=== PATIENT | female | born 1980 | race Caucasian/White ===

== ENCOUNTER 2017-09-15 20:38 | Day surgery (SDC) | payer BC ==
--- NOTE | 2017-09-15 21:10 | EDM.PDOC ---
ED HPI GENERAL MEDICAL PROBLEM - General Chief Complaint: Abdominal Pain Stated Complaint: STOMACH PAIN Time Seen by Provider: 09/15/17 20:38 Source of Information: Reports: Patient History Limitations: Reports: No Limitations - History of Present Illness INITIAL COMMENTS - FREE TEXT/NARRATIVE: 37 y.o.w.f came to the ed after she was seen at the clinic. Pt came to the ed due to lower abd pain more so at the RLQ of her abd. No F/C/N/V Temp was 36.2 BP 102/72 Pulse 72 O2 sat 95% on RA, no trauma, denied Onset Date: 09/15/17 Onset Time: 03:00 Duration: Hour(s):, Intermittent Location: Reports: Abdomen (lower abd. worse Right lower abd. ) Quality: Reports: Ache Severity: Moderate Improves with: Reports: Rest Worsens with: Reports: Movement Associated Symptoms: Reports: No Other Symptoms Right Lower Abdomen Pain Score (Numeric/FACES): 6 - Related Data Allergies Allergy/AdvReac Type Severity Reaction Status Date / Time Penicillins Allergy Rash Verified 09/15/17 20:52 Home Meds: Home Meds Escitalopram Oxalate 5 mg PO ASDIRECTED PRN 09/15/17 [History] ED ROS GENERAL - Review of Systems Review Of Systems: See Below Constitutional: Reports: No Symptoms HEENT: Reports: No Symptoms Respiratory: Reports: No Symptoms Cardiovascular: Reports: No Symptoms Endocrine: Reports: No Symptoms GI/Abdominal: Reports: Abdominal Pain (lower abd. R side > the left lide of lower abdomen) : Reports: No Symptoms ED EXAM, GI/ABD - Physical Exam Exam: See Below Exam Limited By: No Limitations General Appearance: Alert, WD/WN, Mild Distress Eyes: Bilateral: Normal Appearance Ears: Normal External Exam Nose: Normal Inspection Throat/Mouth: Normal Inspection Head: Atraumatic, Normocephalic Neck: Normal Inspection, Supple, Non-Tender, Full Range of Motion Respiratory/Chest: No Respiratory Distress, Lungs Clear, Normal Breath Sounds, No Accessory Muscle Use Cardiovascular: Normal Peripheral Pulses, Regular Rate, Rhythm, No Edema GI/Abdominal Exam: Tender (RLQ of abdomen) (Female) Exam: Deferred Rectal (Female) Exam: Deferred Back Exam: Normal Inspection, Full Range of Motion Extremities: Normal Inspection, Normal Range of Motion, Non-Tender, No Pedal Edema, Normal Capillary Refill Neurological: Alert, Oriented, CN II-XII Intact, Normal Cognition, Normal Gait, No Motor/Sensory Deficits Psychiatric: Normal Affect, Normal Mood Skin Exam: Warm, Dry, Intact, Normal Color, No Rash Lymphatic: No Adenopathy Course - Vital Signs Text/Narrative:: 37 y.o.w.f came to the ed after she was seen at the clinic. Pt came to the ed due to lower abd pain more so at the RLQ of her abd. No F/C/N/V Temp was 36.2 BP 102/72 Pulse 72 O2 sat 95% on RA, no trauma, denied PE: R lower abd. pain with guarding/no rebound Labs: WBC 11.9 HGB 14.3 UA neg for UTI HCG neg Imaging: Acute appendicitis, cyst at left wall of vagina Impression: Acute Appy, Cyst left wall of vagina Tx: Toradol, Mefoxin Reexam: Pain subsided 11.35 pm Consultation: , surgeon: Will see the pt in the Ed, call surgical team in Plan: Surgery scheduled. Dr. Grimes took the care over at 11.45 pm Last Recorded V/S: Last Vital Signs Temp 36.9 C 09/16/17 08:00 Pulse 80 09/16/17 13:15 Resp 18 09/16/17 08:00 BP 102/61 09/16/17 08:00 Pulse Ox 96 09/16/17 13:15 - Orders/Labs/Meds Orders: Active Orders 24 hr Category Date Time Status Patient Status [ADT] Routine ADT 09/16/17 01:17 Active Oxygen Therapy [RC] PRN Care 09/16/17 01:17 Active RT Incentive Spirometry [RC] Q2HWA Care 09/16/17 01:19 Active Ready for Discharge [RC] PER UNIT ROUTINE Care 09/16/17 13:32 Active Up With Assistance [RC] ASDIRECTED Care 09/16/17 01:19 Active Vital Signs [RC] PER UNIT ROUTINE Care 09/16/17 01:19 Active Clear Liquid Diet [DIET] Diet 09/16/17 Breakfast Ordered Full Liquid Diet [DIET] Diet 09/16/17 Dinner Ordered Abdomen Pelvis w Cont [CT] Stat Exams 09/15/17 22:31 Taken Acetaminophen/HYDROcodone [[place] 325-5 MG] Med 09/16/17 01:19 Active 1 tab PO Q4H PRN Lactated Ringers [Ringers, Lactated] 1,000 ml Med 09/16/17 01:30 Active IV ASDIRECTED Lactated Ringers [Ringers, Lactated] 1,000 ml Med 09/16/17 23:55 Active IV ASDIRECTED Morphine Med 09/16/17 01:19 Active 2 mg IVPUSH Q1H PRN Sodium Chloride 0.9% [Saline Flush] Med 09/15/17 22:50 Active 10 ml FLUSH ASDIRECTED PRN Peripheral IV Discontinue [OM.PC] Routine Oth 09/16/17 13:07 Ordered Saline Lock Insert [OM.PC] Routine Oth 09/15/17 22:50 Ordered Resuscitation Status Routine Resus Stat 09/16/17 01:17 Ordered Medication Orders Hydrocodone Bitart/Acetaminophen ([place] 325-5 Mg) 1 tab PO Q4H PRN PRN Reason: Pain (mild 1-3) Last Admin: 09/16/17 10:22 Dose: 1 tab Lactated Ringer's (Ringers, Lactated) 1,000 mls @ 125 mls/hr IV ASDIRECTED BRYON Lactated Ringer's (Ringers, Lactated) 1,000 mls @ 125 mls/hr IV ASDIRECTED BRYON Last Admin: 09/16/17 06:24 Dose: 125 mls/hr Infusion: 09/16/17 06:24 Dose: 125 mls/hr Admin: 09/15/17 23:55 Dose: 125 mls/hr Morphine Sulfate (Morphine) 2 mg IVPUSH Q1H PRN PRN Reason: Pain (severe 7-10) Last Admin: 09/16/17 08:42 Dose: 2 mg Admin: 09/16/17 05:29 Dose: 2 mg Admin: 09/16/17 02:28 Dose: 2 mg Sodium Chloride (Saline Flush) 10 ml FLUSH ASDIRECTED PRN PRN Reason: Keep Vein Open Last Admin: 09/15/17 22:50 Dose: 10 ml Labs: Laboratory Tests 09/15/17 09/15/17 09/15/17 Range/Units 21:16 21:16 21:50 WBC 11.9 (4.5-12.0) X10-3/uL RBC 4.98 (3.23-5.20) x10(6)uL Hgb 14.3 (11.5-15.5) g/dL Hct 43.6 (30.0-51.3) % MCV 87.5 (80-96) fL MCH 28.8 (27.7-33.6) pg MCHC 32.9 (32.2-35.4) g/dL RDW 12.3 (11.5-15.5) % Plt Count 213 (125-369) X10(3)uL MPV 9.6 (7.4-10.4) fL Neut % (Auto) 80.8 (46-82) % Lymph % (Auto) 13.6 (13-37) % [place] % (Auto) 4.9 (4-12) % Eos % (Auto) 0 L (1.0-5.0) % Baso % (Auto) 1 (0-2) % Neut # (Auto) 9.6 H (1.6-8.3) # Lymph # (Auto) 1.6 (0.6-5.0) # [place] # (Auto) 0.6 (0.0-1.3) # Eos # (Auto) 0.0 (0.0-0.8) # Baso # (Auto) 0.1 (0.0-0.2) # Sodium (135-145) mmol/L Potassium (3.5-5.3) mmol/L Chloride (100-110) mmol/L Carbon Dioxide (23-29) mmol/L BUN (5-20) mg/dL Creatinine (0.6-1.3) mg/dL Est Cr Clr Drug Dosing mL/min Estimated GFR (MDRD) (>60) BUN/Creatinine Ratio (9-20) Glucose (80-116) mg/dL Lactic Acid (0.5-2.2) mmol/L Calcium (8.6-10.2) mg/dL Total Bilirubin (0.1-1.3) mg/dL Direct Bilirubin (0.1-0.2) mg/dL AST (5-27) IU/L ALT (14-26) IU/L Alkaline Phosphatase (56-112) IU/L Total Protein (6.0-8.0) g/dL Albumin (3.5-5.2) g/dL Amylase (28-100) U/L Urine Color Yellow (YELLOW) Urine Appearance Clear (CLEAR) Urine pH 6.0 (5.0-6.5) Ur Specific [place] 1.020 (1.010-1.025) Urine Protein Negative (NEGATIVE) mg/dL Urine Glucose (UA) Normal (NEGATIVE) mg/dL Urine Ketones 150 H (NEGATIVE) mg/dL Urine Occult Blood Negative (NEGATIVE) Urine Nitrite Negative (NEGATIVE) Urine Bilirubin Negative (NEGATIVE) Urine Urobilinogen 1 H (NEGATIVE) mg/dL Ur Leukocyte Esterase Negative (NEGATIVE) Urine RBC 0-5 (0) Urine WBC 0-5 (0) Ur Squamous Epith Cells Moderate H (NS,R,O) Urine Bacteria Few H (NS) Urine Mucus Moderate H (NS) Urine HCG, Qual Negative (NEGATIVE) 09/15/17 09/15/17 Range/Units 21:50 21:50 WBC (4.5-12.0) X10-3/uL RBC (3.23-5.20) x10(6)uL Hgb (11.5-15.5) g/dL Hct (30.0-51.3) % MCV (80-96) fL MCH (27.7-33.6) pg MCHC (32.2-35.4) g/dL RDW (11.5-15.5) % Plt Count (125-369) X10(3)uL MPV (7.4-10.4) fL Neut % (Auto) (46-82) % Lymph % (Auto) (13-37) % [place] % (Auto) (4-12) % Eos % (Auto) (1.0-5.0) % Baso % (Auto) (0-2) % Neut # (Auto) (1.6-8.3) # Lymph # (Auto) (0.6-5.0) # [place] # (Auto) (0.0-1.3) # Eos # (Auto) (0.0-0.8) # Baso # (Auto) (0.0-0.2) # Sodium 135 (135-145) mmol/L Potassium 3.7 (3.5-5.3) mmol/L Chloride 101 (100-110) mmol/L Carbon Dioxide 27 (23-29) mmol/L BUN 7 (5-20) mg/dL Creatinine 0.7 (0.6-1.3) mg/dL Est Cr Clr Drug Dosing 112.45 mL/min Estimated GFR (MDRD) > 60 (>60) BUN/Creatinine Ratio 10.0 (9-20) Glucose 129 H (80-116) mg/dL Lactic Acid 0.9 (0.5-2.2) mmol/L Calcium 8.9 (8.6-10.2) mg/dL Total Bilirubin 1.9 H (0.1-1.3) mg/dL Direct Bilirubin 0.2 (0.1-0.2) mg/dL AST 19 (5-27) IU/L ALT 13 L (14-26) IU/L Alkaline Phosphatase 35 L (56-112) IU/L Total Protein 7.2 (6.0-8.0) g/dL Albumin 4.5 (3.5-5.2) g/dL Amylase 64 (28-100) U/L Urine Color (YELLOW) Urine Appearance (CLEAR) Urine pH (5.0-6.5) Ur Specific [place] (1.010-1.025) Urine Protein (NEGATIVE) mg/dL Urine Glucose (UA) (NEGATIVE) mg/dL Urine Ketones (NEGATIVE) mg/dL Urine Occult Blood (NEGATIVE) Urine Nitrite (NEGATIVE) Urine Bilirubin (NEGATIVE) Urine Urobilinogen (NEGATIVE) mg/dL Ur Leukocyte Esterase (NEGATIVE) Urine RBC (0) Urine WBC (0) Ur Squamous Epith Cells (NS,R,O) Urine Bacteria (NS) Urine Mucus (NS) Urine HCG, Qual (NEGATIVE) Meds: Medications Generic Name Dose Route Start Last Admin Trade Name Freq PRN Reason Stop Dose Admin Hydrocodone Bitart/Acetaminophen 1 tab 09/16/17 01:19 09/16/17 10:22 [place] 325-5 Mg PO 1 tab Q4H PRN Administration Pain (mild 1-3) Lactated Ringer's 1,000 mls @ 125 mls/hr 09/16/17 23:55 Ringers, Lactated IV ASDIRECTED BRYON Lactated Ringer's 1,000 mls @ 125 mls/hr 09/16/17 01:30 09/16/17 06:24 Ringers, Lactated IV 125 mls/hr ASDIRECTED BRYON Administration Morphine Sulfate 2 mg 09/16/17 01:19 09/16/17 08:42 Morphine IVPUSH 2 mg Q1H PRN Administration Pain (severe 7-10) Sodium Chloride 10 ml 09/15/17 22:50 09/15/17 22:50 Saline Flush FLUSH 10 ml ASDIRECTED PRN Administration Keep Vein Open Discontinued Medications Generic Name Dose Route Start Last Admin Trade Name Murphyq PRN Reason Stop Dose Admin Cefoxitin Sodium Confirm 09/15/17 23:58 09/16/17 02:45 Mefoxin Administered 09/15/17 23:59 Not Given Dose 2 gm .ROUTE .STK-MED ONE Cefoxitin Sodium 2 gm/ Sodium 100 mls @ 200 mls/hr 09/15/17 23:54 09/16/17 02 :45 Chloride IV 09/16/17 00:23 Not Given ONETIME ONE Cefoxitin Sodium Confirm 09/16/17 00:01 09/16/17 02:45 Mefoxin In Dextrose,Iso-Osm 1 Gm/50 Ml Administered 09/16/17 00:02 Not Given Dose 100 mls @ as directed .ROUTE .STK-MED ONE Cefoxitin Sodium 1 gm/ Premix 50 mls @ 100 mls/hr 09/16/17 23:55 IV 09/17/17 00:24 ONETIME ONE Cefoxitin Sodium 1 gm/ Premix 50 mls @ 100 mls/hr 09/16/17 00:20 09/16/17 00: 21 IV 09/16/17 00:24 100 mls/hr ONETIME ONE Administration Iopamidol 100 ml 09/15/17 22:47 Isovue-370 (76%) IV 09/15/17 22:48 ONETIME ONE Ketorolac Tromethamine 60 mg 09/15/17 21:53 09/15/17 22:00 Toradol IM 09/15/17 21:54 60 mg ONETIME ONE Administration Departure - Departure Time of Disposition: 00:00 Disposition: Still A Patient 30 Condition: Fair Clinical Impression: Appendicitis - Discharge Information - My Orders Last 24 Hours: My Active Orders 09/15/17 22:31 Abdomen Pelvis w Cont [CT] Stat 09/15/17 22:50 Sodium Chloride 0.9% [Saline Flush] 10 ml FLUSH ASDIRECTED PRN Saline Lock Insert [OM.PC] Routine - Assessment/Plan Last 24 Hours: My Active Orders 09/15/17 22:31 Abdomen Pelvis w Cont [CT] Stat 09/15/17 22:50 Sodium Chloride 0.9% [Saline Flush] 10 ml FLUSH ASDIRECTED PRN Saline Lock Insert [OM.PC] Routine
[2017-09-15] MEDS ORDERED: Ketorolac 60 MG/2 ML SDV IM ONE (21:53)
[2017-09-15] MEDS ORDERED: Iopamidol 755 Mg/ML 100 ML Bottle IV ONE (22:47)
[2017-09-15] MEDS ORDERED: Sodium Chloride 0.9% 10 ML Syringe FLUSH PRN (22:50)
[2017-09-15] MEDS ORDERED: cefOXitin 2 GM in Sodium Chloride 0.9% 100 ML IV ONE (23:54)
[2017-09-15] MEDS: Lactated Ringers 1,000 ML IV SCH (23:55)
[2017-09-15] MEDS ORDERED: cefOXitin 1 GM Vial ONE (23:58)
[2017-09-16] MEDS ORDERED: cefOXitin 100 ML ONE (00:01)
--- NOTE | 2017-09-16 00:13 | PCM.HP ---
H&P History of Present Illness - General Date of Service: 09/16/17 Source of Information: Patient History Limitations: Reports: No Limitations - History of Present Illness Onset of Symptoms: Reports: Gradual (sice 0300) Location: Reports: Abdomen (diffuse, now RLQ) Quality: Reports: Ache, Sharp Severity: Moderate Improves with: Reports: Medication Worsens with: Reports: Movement Associated Symptoms: Denies: Nausea/Vomiting Right Lower Abdomen Pain Score (Numeric/FACES): 6 - Related Data Allergies/Adverse Reactions: Allergies Allergy/AdvReac Type Severity Reaction Status Date / Time Penicillins Allergy Rash Verified 09/15/17 20:52 Home Medications: Home Meds Escitalopram Oxalate 5 mg PO ASDIRECTED PRN 09/15/17 [History] Past Medical History Psychiatric History: Reports: Anxiety, Depression - Infectious Disease History Infectious Disease History: Reports: Chicken Pox Social & Family History - Tobacco Use Smoking Status *Q: Never Smoker Second Hand Smoke Exposure: No - Caffeine Use Caffeine Use: Reports: Coffee, Soda - Recreational Drug Use Recreational Drug Use: No H&P Review of Systems - Review of Systems: Review Of Systems: See Below General: Reports: No Symptoms. Denies: Fever, Chills HEENT: Reports: No Symptoms Pulmonary: Reports: No Symptoms Cardiovascular: Reports: No Symptoms Gastrointestinal: Reports: Abdominal Pain Genitourinary: Reports: No Symptoms Exam - Exam Exam: See Below - Vital Signs Vital Signs: Last Vital Signs Temp 98.3 F 09/15/17 20:53 Pulse 72 09/15/17 20:53 Resp 16 09/15/17 20:53 BP 102/72 09/15/17 20:53 Pulse Ox 95 09/15/17 20:53 Weight: 63.503 kg - Exam General: Alert, Oriented Lungs: Clear to Auscultation, Normal Respiratory Effort Cardiovascular: Regular Rate, Regular Rhythm GI/Abdominal Exam: Soft, Tender (in RLQ) - Patient Data Lab Results Last 24 hrs: Laboratory Results - last 24 hr 09/15/17 09/15/17 09/15/17 Range/Units 21:16 21:16 21:50 WBC 11.9 (4.5-12.0) X10-3/uL RBC 4.98 (3.23-5.20) x10(6)uL Hgb 14.3 (11.5-15.5) g/dL Hct 43.6 (30.0-51.3) % MCV 87.5 (80-96) fL MCH 28.8 (27.7-33.6) pg MCHC 32.9 (32.2-35.4) g/dL RDW 12.3 (11.5-15.5) % Plt Count 213 (125-369) X10(3)uL MPV 9.6 (7.4-10.4) fL Neut % (Auto) 80.8 (46-82) % Lymph % (Auto) 13.6 (13-37) % [place] % (Auto) 4.9 (4-12) % Eos % (Auto) 0 L (1.0-5.0) % Baso % (Auto) 1 (0-2) % Neut # (Auto) 9.6 H (1.6-8.3) # Lymph # (Auto) 1.6 (0.6-5.0) # [place] # (Auto) 0.6 (0.0-1.3) # Eos # (Auto) 0.0 (0.0-0.8) # Baso # (Auto) 0.1 (0.0-0.2) # Sodium (135-145) mmol/L Potassium (3.5-5.3) mmol/L Chloride (100-110) mmol/L Carbon Dioxide (23-29) mmol/L BUN (5-20) mg/dL Creatinine (0.6-1.3) mg/dL Est Cr Clr Drug Dosing mL/min Estimated GFR (MDRD) (>60) BUN/Creatinine Ratio (9-20) Glucose (80-116) mg/dL Lactic Acid (0.5-2.2) mmol/L Calcium (8.6-10.2) mg/dL Total Bilirubin (0.1-1.3) mg/dL Direct Bilirubin (0.1-0.2) mg/dL AST (5-27) IU/L ALT (14-26) IU/L Alkaline Phosphatase (56-112) IU/L Total Protein (6.0-8.0) g/dL Albumin (3.5-5.2) g/dL Amylase (28-100) U/L Urine Color Yellow (YELLOW) Urine Appearance Clear (CLEAR) Urine pH 6.0 (5.0-6.5) Ur Specific [place] 1.020 (1.010-1.025) Urine Protein Negative (NEGATIVE) mg/dL Urine Glucose (UA) Normal (NEGATIVE) mg/dL Urine Ketones 150 H (NEGATIVE) mg/dL Urine Occult Blood Negative (NEGATIVE) Urine Nitrite Negative (NEGATIVE) Urine Bilirubin Negative (NEGATIVE) Urine Urobilinogen 1 H (NEGATIVE) mg/dL Ur Leukocyte Esterase Negative (NEGATIVE) Urine RBC 0-5 (0) Urine WBC 0-5 (0) Ur Squamous Epith Cells Moderate H (NS,R,O) Urine Bacteria Few H (NS) Urine Mucus Moderate H (NS) Urine HCG, Qual Negative (NEGATIVE) 09/15/17 09/15/17 Range/Units 21:50 21:50 WBC (4.5-12.0) X10-3/uL RBC (3.23-5.20) x10(6)uL Hgb (11.5-15.5) g/dL Hct (30.0-51.3) % MCV (80-96) fL MCH (27.7-33.6) pg MCHC (32.2-35.4) g/dL RDW (11.5-15.5) % Plt Count (125-369) X10(3)uL MPV (7.4-10.4) fL Neut % (Auto) (46-82) % Lymph % (Auto) (13-37) % [place] % (Auto) (4-12) % Eos % (Auto) (1.0-5.0) % Baso % (Auto) (0-2) % Neut # (Auto) (1.6-8.3) # Lymph # (Auto) (0.6-5.0) # [place] # (Auto) (0.0-1.3) # Eos # (Auto) (0.0-0.8) # Baso # (Auto) (0.0-0.2) # Sodium 135 (135-145) mmol/L Potassium 3.7 (3.5-5.3) mmol/L Chloride 101 (100-110) mmol/L Carbon Dioxide 27 (23-29) mmol/L BUN 7 (5-20) mg/dL Creatinine 0.7 (0.6-1.3) mg/dL Est Cr Clr Drug Dosing 112.45 mL/min Estimated GFR (MDRD) > 60 (>60) BUN/Creatinine Ratio 10.0 (9-20) Glucose 129 H (80-116) mg/dL Lactic Acid 0.9 (0.5-2.2) mmol/L Calcium 8.9 (8.6-10.2) mg/dL Total Bilirubin 1.9 H (0.1-1.3) mg/dL Direct Bilirubin 0.2 (0.1-0.2) mg/dL AST 19 (5-27) IU/L ALT 13 L (14-26) IU/L Alkaline Phosphatase 35 L (56-112) IU/L Total Protein 7.2 (6.0-8.0) g/dL Albumin 4.5 (3.5-5.2) g/dL Amylase 64 (28-100) U/L Urine Color (YELLOW) Urine Appearance (CLEAR) Urine pH (5.0-6.5) Ur Specific [place] (1.010-1.025) Urine Protein (NEGATIVE) mg/dL Urine Glucose (UA) (NEGATIVE) mg/dL Urine Ketones (NEGATIVE) mg/dL Urine Occult Blood (NEGATIVE) Urine Nitrite (NEGATIVE) Urine Bilirubin (NEGATIVE) Urine Urobilinogen (NEGATIVE) mg/dL Ur Leukocyte Esterase (NEGATIVE) Urine RBC (0) Urine WBC (0) Ur Squamous Epith Cells (NS,R,O) Urine Bacteria (NS) Urine Mucus (NS) Urine HCG, Qual (NEGATIVE) Result Diagrams: 09/15/17 21:50 09/15/17 21:50 Imaging Impressions Last 24 hrs: CT show acute appendicitis *Q Meaningful Use (ADM) - VTE *Q VTE Criteria *Q: - Stroke *Q Stroke Criteria *Q: - AMI *Q AMI Criteria *Q: - Problem List (1) Appendicitis, acute SNOMED Code(s): 03036467 ICD Code: K35.80 - UNSPECIFIED ACUTE APPENDICITIS Status: Acute Current Visit: Yes Problem List Initiated/Reviewed/Updated: Yes Orders Last 24hrs: Active Orders 24 hr Category Date Time Status Abdomen Pelvis w Cont [CT] Stat Exams 09/15/17 22:31 Taken Sodium Chloride 0.9% [Saline Flush] Med 09/15/17 22:50 Active 10 ml FLUSH ASDIRECTED PRN cefOXitin [Mefoxin] 2 gm Med 09/15/17 23:54 Active Sodium Chloride 0.9% [Normal Saline] 100 ml IV ONETIME Saline Lock Insert [OM.PC] Routine Oth 09/15/17 22:50 Ordered Medication Orders Cefoxitin Sodium 2 gm/ Sodium (Chloride) 100 mls @ 200 mls/hr IV ONETIME ONE Stop: 09/16/17 00:23 Sodium Chloride (Saline Flush) 10 ml FLUSH ASDIRECTED PRN PRN Reason: Keep Vein Open Last Admin: 09/15/17 22:50 Dose: 10 ml Assessment/Plan Comment:: Acute Appendicitis Will proceed with lap appy; risks and complications reviewed, consent obtained
[2017-09-16] MEDS ORDERED: cefOXitin 1 GM in Premix Bag 1 BAG IV ONE ×5 (00:20→23:55)
[2017-09-16] MEDS ORDERED: Neostigmine Methylsulfate 1 MG/ML 5 ML Syringe IV ONE (00:38)
[2017-09-16] MEDS ORDERED: fentaNYL 100 MCG/2 ML SDV IV ONE (00:38)
[2017-09-16] MEDS ORDERED: Lidocaine 1% 20 ML MDV INJECT ONE (00:38)
[2017-09-16] MEDS ORDERED: Ondansetron 4 MG/2 ML SDV IVPUSH ONE (00:38)
[2017-09-16] MEDS ORDERED: Succinylcholine 200 MG/10 ML MDV IV ONE (00:38)
[2017-09-16] MEDS ORDERED: Dexamethasone 4 MG/ML 5 ML MDV IVPUSH ONE (00:38)
[2017-09-16] MEDS ORDERED: Lactated Ringers 1,000 ML IV ONE (00:38)
[2017-09-16] MEDS ORDERED: Propofol 200 MG/20 ML SDV IV ONE (00:38)
[2017-09-16] MEDS ORDERED: Midazolam 1 MG/ML 2 ML SDV IV ONE (00:38)
[2017-09-16] MEDS ORDERED: Glycopyrrolate 0.2 MG/ML 5 ML MDV IV ONE (00:38)
[2017-09-16] MEDS ORDERED: Rocuronium 100 MG/10 ML MDV IV ONE (00:38)
--- NOTE | 2017-09-16 01:17 | PCM.OPNOTE ---
- General Post-Op/Procedure Note Date of Surgery/Procedure: 09/16/17 Operative Procedure(s): Lap Appy Findings: Acute Appendicitis Pre Op Diagnosis: Above Post-Op Diagnosis: Same Anesthesia Technique: General ET Tube Primary Surgeon: Akash Grimes Pathology: Appendix EBL in mLs: 20 Complications: None Condition: Good
--- NOTE | 2017-09-16 01:38 | OR ---
DATE OF OPERATION: 09/16/2017 SURGEON: Akash Grimes MD PREOPERATIVE DIAGNOSIS: Acute appendicitis. POSTOPERATIVE DIAGNOSIS: Acute appendicitis. PROCEDURE: Laparoscopic appendectomy. ANESTHESIA: General. DESCRIPTION OF PROCEDURE: The patient was brought to the operating room, where general endotracheal anesthesia was administered. The abdomen was prepped with ChloraPrep and draped sterilely. An infraumbilical incision was made and extended into the peritoneal cavity without difficulty. The Carly cannulator was introduced and pneumoperitoneum obtained, 5 mm ports were placed in the suprapubic position and fdc between the umbilicus and pubis. General exploration revealed an acutely inflamed appendix in the right lower quadrant. This was grasped and a window made through the mesoappendix at the base and transected with an Endo-CHRISTINA 2.5 mm stapler. A second application was used to transect the appendix using a 3.5 mm cartridge. The appendix was placed in an Endopouch and brought out through the umbilical incision. Right lower quadrant was thoroughly inspected and hemostasis assured. Staple lines were intact. The ports were removed under direct vision and remained hemostatic. Umbilical fascia was closed with [id number] 0 Vicryl. Skin was closed with 4-0 Vicryl subcuticular sutures. Benzoin and Steri-Strips were placed and Band-Aids applied. The patient tolerated the procedure well. ESTIMATED BLOOD LOSS: 20 mL. She returned to postanesthesia in stable condition. /[id number] DANYELL/JAZ
[2017-09-16] MEDS: Morphine 2 MG/ML Syringe IVPUSH PRN ×3 (02:28→08:42)
[2017-09-16] MEDS: Lactated Ringers 1,000 ML IV SCH (06:24)
[2017-09-16] MEDS: Acetaminophen/HYDROcodone 325-5 MG Tab PO PRN ×2 (10:22→14:20)
--- NOTE | 2017-09-16 13:34 | PCM.SN ---
- Free Text/Narrative Note: Patient had good night and morning. Urinating well. Tolerating liquids well Will discharge to home and f/u next week
[2017-09-16] MEDS ORDERED: Lactated Ringers 1,000 ML IV SCH (23:55)
== END 2017-09-16 14:30 | disposition home or self-care (01) ==
LOC: FB.ED 20:38 → FB.SDS 23:43 → FB.MS 23:45 → FB.SDS 23:45 → FB.MS 23:54 → FB.SDS 09-16 14:30
PROVIDERS: ATTEND Surgery
DX: K35.80 Unspecified acute appendicitis (principal); F41.9 Anxiety disorder, unspecified; F32.9 Major depressive disorder, single episode, unspecified; Z88.0 Allergy status to penicillin; Z79.899 Other long term (current) drug therapy
CPT/HCPCS: 36415; 44970; 74177; 80048; 80076; 81001; 81025; 82150; 83605; 85025; 88304; 94150; 99285; A9270; J0330; J0694; J1100; J1885; J2250; J2270; J2405; J2704; J3010; J7050; J7120; Q9967